=== PATIENT | male | born 1980 | race Caucasian/White ===

== ENCOUNTER 2024-09-01 15:50 | Outpatient (CLI) | payer OTHER, SELFPAY | END 2024-09-01 15:51 | disposition home or self-care (01) | PROVIDERS: PCP Emergency Medicine; Visit Provider Emergency Medicine | DX: Z13.1 Encounter for screening for diabetes mellitus (principal); Z13.6 Encounter for screening for cardiovascular disorders | CPT/HCPCS: 80061; 82947 ==